=== PATIENT | female | born 1955 | race African-American/Black ===

== ENCOUNTER 2019-11-21 00:21 | Inpatient (IN) | payer OTHER ==
[2019-11-21 02:05] VITALS: BMI 41.3
[2019-11-21] MEDS ORDERED: Enoxaparin Sodium 100 MG/ML SYRINGE SC SCH ×2 (11:00→21:00)
[2019-11-21] MEDS ORDERED: Electrolyte Replacement Protoc 1 EACH EACH FS SCH (11:00)
[2019-11-21] MEDS ORDERED: Melatonin 3 MG TAB PO PRN (11:26)
[2019-11-21] MEDS: Sodium Chloride 0.9% 1,000 ML IV SCH ×2 (11:35→19:54)
[2019-11-21] MEDS ORDERED: Electrolyte Replacement Protocol FS PRN (11:45)
[2019-11-21 12:06] LABS: Troponin I 0.101 ng/mL (< 0.028)
[2019-11-21 14:54] LABS: SARS-CoV-2 MS2 Positive; SARS-CoV-2 N Gene Positive; SARS-CoV-2 S Gene Positive; SARS-CoV-2 orf1ab Positive
[2019-11-21] MEDS ORDERED: Lorazepam 1 MG TAB PO SCH (16:00)
--- NOTE | 2019-11-21 17:25 | PDOC.HHP ---
Hospitalist HPI - History of Present Illness generalized weakness History of Present Illness: 64yo F w/ MHx of "irregular heart rhythm" diagnosed 3 years ago, anxiety, depression presents with generalized weakness and feeling bad for the past week. Went to on Monday and has been feeling progressively weak and unwell since. Associate with episoding diarrhea and chills, but diarrhea has resolved over the past couple of days. On encounter, laying comfortably in bed and appears mildly anxious. Denies fatigue, chest pain, palpitations, dyspnea, heat intolerance, hematochezia, melena, hematemesis, focal weakness ED Course: In the Ed, found to have rate controlled atrial fibrillation. Was admitted to the floor for further management. Hospitalist ROS - Review of Systems Constitutional: reports: chills, sweats, weakness, malaise. denies: fever Eyes: denies: vision change ENT: reports: other (loss of taste and smell) Respiratory: reports: cough, dry. denies: shortness of breath, SOB with excertion, pleuritic pain, sputum, wheezing Cardiovascular: denies: chest pain, palpitations, orthopnea, paroxysmal noc. dyspnea, edema Gastrointestinal: denies: nausea, vomiting, abdominal pain Genitourinary: denies: dysuria, frequency, incontinence, hematuria Neurological: reports: weakness. denies: numbness, incoordination, change in speech, confusion, seizures - Medication Medications: Active Medications Generic Name Dose Route Start Last Admin Trade Name Freq PRN Reason Stop Dose Admin Sodium Chloride 1,000 mls @ 70 mls/hr 11/21/19 11:30 11/21/19 11:35 Normal Saline 0.9% IV 1,000 mls .[id number] JERI Administration Lorazepam 2 mg 11/21/19 16:00 11/21/19 16:20 Ativan PO 11/21/19 18:00 2 mg 1600 JERI Administration Hospitalist History - Past Medical History Source: old records (MHx: HTN, irregular heart beat diagnosed three years ago SHx: hysterectomy, cholecystectomy,tubal ligation Sx: doesnt smoke drink or do recreational drugs Fx: HTN Meds: reconciled in EMR Allergies: lisinopril) - Exam General Appearance: awake alert General - other findings: mildly anxious Eye: PERRL, anicteric sclera ENT: normocephalic atraumatic, dry oral mucosa Heart: no murmur, no gallops, no rubs, irregular Heart - other findings: HR 80-90 Respiratory: CTAB, no wheezes, no rales, no ronchi Gastrointestinal: soft, non-tender, non-distended, normal bowel sounds Extremities: no edema Neurological: cranial nerve grossly intact, no focal deficits, no new deficit. negative: facial droop, hemiplegia, speech deficit Psychiatric: normal affect, normal behavior, A&O x 3 Hospitalist Results - Labs Lab results: Troponin I 0.101 ng/mL (< 0.028) H 11/21/19 11:21 - EKG Interpretation EKG: atrial fibrillation, criteria of LVH with asymmetric nonspecific t-wave inversions - Radiology Interpretation Chest x-ray Status: image reviewed by me (no acute cardiopulmonary process), report reviewed by me Hospitalist H&P A/P - Problem (1) Pneumonia due to COVID-19 virus Code(s): U07.1 - COVID-19; J12.89 - OTHER VIRAL PNEUMONIA Status: Acute (2) Chronic atrial fibrillation Code(s): I48.20 - CHRONIC ATRIAL FIBRILLATION, UNSPECIFIED Status: Acute (3) Hypertension Code(s): I10 - ESSENTIAL (PRIMARY) HYPERTENSION Status: Acute (4) Prediabetes Code(s): R73.03 - PREDIABETES Status: Acute (5) Anxiety Code(s): F41.9 - ANXIETY DISORDER, UNSPECIFIED Status: Acute - Plan Plan: #covid pneumia - mild; doesnt qualify for steroids, resmedivir, or plasma; supportive treatment and isolation #atrial fibrillation - rate controlled, likely chronic considering patient's description; EKG c/w LVH, mild lower exremity edema, will get echo; CHADSVASC 2 , started therapeutic lovenox #HTN - started home regimen full code, GI PPx not Ix, DVT PPx on therapeutic ELOS: 1-2 nights
[2019-11-21 19:06] LABS: Troponin I 0.084 ng/mL (< 0.028)
[2019-11-21] MEDS: Enoxaparin Sodium 100 MG/ML SYRINGE SC SCH (19:54)
[2019-11-21] MEDS: Venlafaxine HCl XR 75 MG CAP PO SCH (19:55)
[2019-11-21] MEDS: Hydrochlorothiazide 25 MG TAB PO SCH (19:55)
[2019-11-21] MEDS: Metoprolol Tartrate 100 MG TAB PO SCH (19:55)
[2019-11-21] MEDS ORDERED: Labetalol HCl 100 MG/20 ML VIAL SLOW IVP PRN (20:50)
[2019-11-21] MEDS ORDERED: hydrALAZINE 20 MG/ML VIAL SLOW IVP PRN (20:50)
[2019-11-21] MEDS ORDERED: Simvastatin 5 MG TAB PO SCH (21:00)
[2019-11-22 04:48] LABS: #Basophils 0.1 thou/uL (0.0-0.2); #Lymphocytes 1.8 thou/uL (1.20-3.40); #Monocytes 0.4 thou/uL (0.11-0.59); #Neutrophils 1.5 thou/uL (1.40-6.50); %Eosinophils 0.1 % (0.0-10.0); %Lymphocytes 47.6 % (21.0-51.0); %Monocytes 11.1 % (0.0-10.0); %Neutrophils 39.1 % (42.0-75.0); Hemoglobin 14.3 g/dL (12.0-16.0); Mean Corpuscular HGB CONC 32.9 g/dL (32.0-36.0); Mean Corpuscular Hemoglobin 32.4 pg (27.0-31.0); Mean Corpuscular Volume 98.6 fL (78.0-98.0); Mean Platelet Volume 8.9 fL (7.4-10.4); Platelet Count 200 thou/uL (130-400); RBC Distribution Width 12.8 % (11.5-14.5); White Blood Cell (WBC) Count 3.7 thou/uL (4.8-10.8)
[2019-11-22 05:10] LABS: Anion Gap 11 mmol/L (10-20); BUN (Urea Nitrogen) 6 mg/dL (9.8-20.1); Calc. Creatinine Clearance 130 mL/min (70-130); Calcium 9.6 mg/dL (7.8-10.44); Carbon Dioxide 27 mmol/L (23-31); Chloride 103 mmol/L (98-107); Estimated GFR-MDRD Greater than 90; Glucose 103 mg/dL (80-115); Potassium 3.1 mmol/L (3.5-5.1); Sodium 138 mmol/L (136-145)
[2019-11-22] MEDS ORDERED: Potassium Chloride 20 MEQ TAB PO SCH (05:45)
[2019-11-22] MEDS: Hydrochlorothiazide 25 MG TAB PO SCH (08:46)
[2019-11-22] MEDS: Enoxaparin Sodium 100 MG/ML SYRINGE SC SCH (08:46)
[2019-11-22] MEDS: Metoprolol Tartrate 100 MG TAB PO SCH (08:47)
[2019-11-22] MEDS: Venlafaxine HCl XR 75 MG CAP PO SCH (08:47)
[2019-11-22] MEDS ORDERED: Cyanocobalamin (Vitamin B-12) 1,000 MCG TAB PO SCH (09:00)
[2019-11-22] MEDS ORDERED: Amlodipine 10 MG TAB PO SCH (09:00)
[2019-11-22] MEDS ORDERED: Enoxaparin Sodium 40 MG/0.4 ML SYRINGE SC SCH (09:00)
[2019-11-22 09:10] VITALS: BP 171/96; TEMP 98.7
--- NOTE | 2019-11-22 20:58 | DIS ---
DATE OF ADMISSION: 11/21/2019 DATE OF DISCHARGE: 11/22/2019 HOSPITAL COURSE: Ms. Ross is a 64-year-old female, with medical history of hypertension that has been elevated, irregular heart rhythm, and depression, who presented for generalized weakness and feeling bad for the past week as well as loss of smell and taste. She was diagnosed with COVID pneumonia. She did not require inpatient stay for treatment of the COVID pneumonia based on clinical criteria. In addition to that, the patient had atrial fibrillation. CHADS-VASc score was 2, so she was started on anticoagulation. Lastly, the patient had poorly controlled hypertension, so her antihypertensive medications were modified and blood pressure was better controlled on the morning of discharge. Prior to discharge, she was educated regarding continued isolation and received written educational material regarding her medical conditions and followup appointments with primary care physician and Cardiology. PHYSICAL EXAMINATION: VITAL SIGNS: Blood pressure 141/81, pulse 76, respiratory rate 16, oxygen saturation 97% on room air, and temperature 98.6. GENERAL: Lying comfortably in bed, in no apparent distress. HEENT: Eyes; PERRLA, anicteric sclera. ENT, normocephalic and atraumatic. Moist oral mucosa. HEART: Heart rate between 80s to 90s, irregularly irregular. No murmurs, gallops, or rubs. RESPIRATORY: Clear to auscultation bilaterally. No wheezes, rales, or rhonchi. GI: Soft, nontender, nondistended. Normal bowel sounds. EXTREMITIES: No edema. PSYCHIATRIC: Appropriate mood and affect. Alert and oriented x3. MEDICATION LIST: New medications; 1. Chlorthalidone 25 mg daily. 2. Apixaban 5 mg p.o. b.i.d. Modified medications: No modified medications. Discontinued medication; 1. Hydrochlorothiazide. Continued medications; 1. Metoprolol tartrate. 2. Amlodipine. 3. Vitamin B12. 4. Quetiapine. 5. Simvastatin. 6. Venlafaxine. Job ID: [id number]
== END 2019-11-22 13:30 | disposition home or self-care (01) | DRG 177 ==
LOC: 2SW 01:19
PROVIDERS: ADMIT Internal Medicine; ATTEND Internal Medicine
PROC: 8E0ZXY6 Isolation (ICD-10-PCS; principal; 2019-11-21)
DX: U07.1 COVID-19 (principal); J12.89 Other viral pneumonia; I48.20 Chronic atrial fibrillation, unspecified; F41.9 Anxiety disorder, unspecified; F32.9 Major depressive disorder, single episode, unspecified; I10 Essential (primary) hypertension; R73.03 Prediabetes; Z79.899 Other long term (current) drug therapy; Z90.49 Acquired absence of other specified parts of digestive tract; Z90.710 Acquired absence of both cervix and uterus; Z98.51 Tubal ligation status; Z88.8 Allergy status to other drugs, medicaments and biological substances
CPT/HCPCS: 36415; 80048; 82728; 84484; 85025; 85379; 86140; 87633; 87635; J0360; J1650; U0003

== ENCOUNTER 2021-05-10 07:56 | Outpatient (CLI) | payer BC ==
[2021-05-10 10:19] LABS: #Eosinphils 0.1 10x3/uL (0.0-0.5); #Monocytes 0.4 10x3/uL (0.0-1.1); #Neutrophils 2.3 10x3/uL (1.5-8.4); %Basophils 0.4 % (0.0-2.0); %Eosinophils 1.9 % (0.0-6.0); %Lymphocytes 39.5 % (18.0-47.0); %Monocytes 8.6 % (0.0-10.0); %Neutrophils 49.4 % (40.0-75.0); Hemoglobin 13.2 g/dL (12.0-15.5); Mean Corpuscular HGB CONC 31.7 g/dL (32.0-36.0); Mean Corpuscular Hemoglobin 31.3 pg (27.0-33.0); Mean Corpuscular Volume 98.8 fl (81.6-98.3); Mean Platelet Volume 11.8 fl (7.4-10.4); Platelet Count 188 10x3/uL (150-450); RBC Distribution Width 14.4 % (11.5-14.5); Red Blood Cell (RBC) Count 4.22 10x6/uL (3.90-5.03); White Blood Cell (WBC) Count 4.7 10x3/uL (3.5-10.5)
[2021-05-10 10:38] LABS: ALT (SGPT) 13 U/L (8-55); AST (SGOT) 17 U/L (5-34); Albumin 3.9 g/dL (3.4-4.8); Alkaline Phosphatase 71 U/L (40-110); Anion Gap 10 mmol/L (10-20); BUN (Urea Nitrogen) 17 mg/dL (9.8-20.1); Bilirubin, Total 0.4 mg/dL (0.2-1.2); Calc. Creatinine Clearance 0 mL/min (70-130); Calcium 10.2 mg/dL (7.8-10.44); Carbon Dioxide 30 mmol/L (23-31); Chloride 106 mmol/L (98-107); Globulin 3.1 g/dL (2.4-3.5); Glucose 97 mg/dL (80-115); Potassium 3.9 mmol/L (3.5-5.1); Sodium 142 mmol/L (136-145)
[2021-05-10 22:23] LABS: SARS-CoV-2 PCR by NAA Not Detected (NotDetected)
== END 2021-05-10 07:57 | disposition home or self-care (01) ==
LOC: LABBT 07:56
PROVIDERS: ATTEND Internal Medicine Cardiovascular Disease
DX: Z01.812 Encounter for preprocedural laboratory examination (principal); Z20.822 Contact with and (suspected) exposure to COVID-19
CPT/HCPCS: 80053; 85025; U0003; U0005

== ENCOUNTER 2021-05-12 13:01 | Day surgery (SDC) | payer BC, OTHER ==
[2021-05-06 11:44] VITALS: BMI 42.0
[2021-05-12] MEDS ORDERED: PROPOFOL 200 MG/20 ML VIAL ONE (14:03)
[2021-05-12] MEDS ORDERED: Flecainide 50 MG TAB PO SCH (14:45)
== END 2021-05-12 15:12 | disposition home or self-care (01) ==
LOC: CCL 13:01
PROVIDERS: ATTEND Internal Medicine Cardiovascular Disease
PROC: 5A2204Z Restoration of Cardiac Rhythm, Single (ICD-10-PCS; principal; 2021-05-12)
PROC: B246ZZ4 Ultrasonography of Right and Left Heart, Transesophageal (ICD-10-PCS; principal; 2021-05-12)
DX: I48.19 Other persistent atrial fibrillation (principal); I08.8 Other rheumatic multiple valve diseases; I11.9 Hypertensive heart disease without heart failure; E78.5 Hyperlipidemia, unspecified; Z86.16 Personal history of COVID-19; Z79.01 Long term (current) use of anticoagulants; Z79.899 Other long term (current) drug therapy; Z88.8 Allergy status to other drugs, medicaments and biological substances
CPT/HCPCS: 92960; 93005; 93010; 93312; J2704

== ENCOUNTER 2021-11-29 13:30 | Outpatient (CLI) | payer BC, OTHER | END 2021-11-29 13:31 | disposition home or self-care (01) | LOC: BICMAMMO 13:30 | PROVIDERS: ATTEND Family Medicine | DX: Z12.31 Encounter for screening mammogram for malignant neoplasm of breast (principal); Z85.3 Personal history of malignant neoplasm of breast; Z80.3 Family history of malignant neoplasm of breast | CPT/HCPCS: 77063; 77067 ==

== ENCOUNTER 2021-12-06 09:13 | Day surgery (SDC) | payer BC, OTHER ==
[2021-12-02 12:02] VITALS: BMI 43.0
[2021-12-06] MEDS ORDERED: PROPOFOL 200 MG/20 ML VIAL ONE (11:24)
== END 2021-12-06 12:58 | disposition home or self-care (01) ==
LOC: SDC 09:13
PROVIDERS: ATTEND Internal Medicine Cardiovascular Disease
PROC: B246ZZ4 Ultrasonography of Right and Left Heart, Transesophageal (ICD-10-PCS; principal; 2021-12-06)
PROC: 5A2204Z Restoration of Cardiac Rhythm, Single (ICD-10-PCS; principal; 2021-12-06)
DX: I48.19 Other persistent atrial fibrillation (principal); I08.1 Rheumatic disorders of both mitral and tricuspid valves; I11.9 Hypertensive heart disease without heart failure; E78.5 Hyperlipidemia, unspecified; Z79.01 Long term (current) use of anticoagulants; Z79.899 Other long term (current) drug therapy; Z88.8 Allergy status to other drugs, medicaments and biological substances
CPT/HCPCS: 92960; 93005; 93010; 93312; J2704

== ENCOUNTER 2023-04-04 12:27 | Outpatient (CLI) | payer MEDICARE | END 2023-04-04 12:28 | disposition home or self-care (01) | LOC: BICMAMMO 12:27 | PROVIDERS: ATTEND Family Medicine | DX: Z12.31 Encounter for screening mammogram for malignant neoplasm of breast (principal); Z80.3 Family history of malignant neoplasm of breast | CPT/HCPCS: 77063; 77067 ==

== ENCOUNTER 2023-07-25 10:00 | Emergency (ER) | payer MEDICARE ==
[2023-07-25] MEDS ORDERED: Ondansetron PF 4 MG/2 ML Vial ONE (10:47)
[2023-07-25] MEDS ORDERED: Ketorolac Tromethamine 30 MG (1 mL) VIAL ONE (10:47)
[2023-07-25] MEDS ORDERED: ISOVUE-370 76% MDV (1 ML CHARGE) ONE (10:53)
[2023-07-25 11:00] LABS: #Monocytes 0.5 thou/uL (0.11-0.59); #Neutrophils 2.7 thou/uL (1.40-6.50); %Basophils 0.2 % (0.0-1.0); %Lymphocytes 34.7 % (21.0-51.0); %Monocytes 10.4 % (0.0-10.0); %Neutrophils 54.5 % (42.0-75.0); Hematocrit 50.2 % (36.0-47.0); Mean Corpuscular HGB CONC 33.9 g/dL (32.0-36.0); Mean Corpuscular Hemoglobin 31.1 pg (27.0-31.0); Mean Corpuscular Volume 91.9 fl (78.0-98.0); Mean Platelet Volume 12.1 fL (7.4-10.4); Platelet Count 225 10x3/uL (130-400); RBC Distribution Width 13.7 % (11.5-14.5); Red Blood Cell (RBC) Count 5.46 mill/uL (4.20-5.40)
[2023-07-25 11:13] LABS: Bilirubin Negative (Negative); Blood, Urine Negative (Negative); Glucose, Urine (Dipstick) Negative (Negative); Ketone, Urine Negative (Negative); Leukocyte Negative (Negative); Nitrite Negative (Negative); Protein, Urine (Dipstick) Negative (Neg-Trace); Specific Gravity, Urine 1.015 (1.005-1.030); Urobilinogen 0.2 mg/dL (Less than 2)
[2023-07-25 11:27] LABS: Clarity Cloudy (Clear)
[2023-07-25 11:28] LABS: ALT (SGPT) 32 U/L (8-55); AST (SGOT) 39 U/L (5-34); Albumin 4.6 g/dL (3.4-4.8); Alkaline Phosphatase 77 U/L (40-110); Anion Gap 14 mmol/L (10-20); BUN (Urea Nitrogen) 21 mg/dL (9.8-20.1); Bilirubin, Total 0.8 mg/dL (0.2-1.2); Calc. Creatinine Clearance 0 mL/min (70-130); Calcium 11.5 mg/dL (7.8-10.44); Carbon Dioxide 29 mmol/L (23-31); Chloride 93 mmol/L (98-107); Estimated GFR 54; Globulin 4.5 g/dL (2.4-3.5); Glucose 124 mg/dL (80-115); Lipase 33 U/L (8-78); Potassium 3.8 mmol/L (3.5-5.1); Protein, Total 9.1 g/dL (5.8-8.1); Sodium 132 mmol/L (136-145)
[2023-07-25 11:38] LABS: CAUTI Indications for Culture Pelvic or flank pain; RBC/HPF 0-3 HPF (0-3); WBC/HPF 0-3 HPF (0-3)
[2023-07-25 11:41] LABS: Bacteria/HPF 1+ HPF (None Seen); Urine Culture Reflex No No
== END 2023-07-25 12:00 | disposition home or self-care (01) ==
LOC: ERS 10:00
DX: K20.90 Esophagitis, unspecified without bleeding (principal); I10 Essential (primary) hypertension; E78.5 Hyperlipidemia, unspecified; I48.91 Unspecified atrial fibrillation; Z79.01 Long term (current) use of anticoagulants; Z79.899 Other long term (current) drug therapy
CPT/HCPCS: 74177; 80053; 81001; 83690; 85025; 96361; 96374; 96375; J1885; J2405